=== PATIENT | female | born 1935 | race Caucasian/White ===

== ENCOUNTER 2018-02-21 23:10 | Inpatient (IN) | payer MEDICARE, MEDICAID ==
[~2018-02-21] VITALS: Ht 167.6 cm; Wt 81.8 kg
[~2018-02-21 23:10] MED LIST: ATEN50TA PO; DOCU-28 PO; GABA-530 PO; GABA-532 PO; LIDO700A5 TOP; LISI10TA4 PO; VALA10002 PO
[2018-02-22] LABS: BASOPHILS % (AUTO) 0.3 % (0-1); EOSINOPHILS # (AUTO) 0.1 X10'3 (0-0.9); HEMATOCRIT 39.4 % (35.0-45.0); HEMOGLOBIN 12.9 g/dl (12.0-16.0); LYMPHOCYTES # (AUTO) 0.9 X10'3 (1.1-4.8); LYMPHOCYTES % (AUTO) 7.1 % (21-51); MEAN CORPUSCULAR HEMOGLOBIN 30.1 PG (27.0-31.0); MEAN CORPUSCULAR HGB CONC 32.8 % (33.0-36.5); MEAN PLATELET VOLUME 9.8 FL (7.4-10.4); MONOCYTES # (AUTO) 0.6 X10'3 (0-0.9); MONOCYTES % (AUTO) 4.3 % (2-12); NEUTROPHILS # (AUTO) 11.5 X10'3 (1.8-7.7); NEUTROPHILS % (AUTO) 87.3 % (42-75); PLATELET COUNT 212 X10'3 (140-440); RED BLOOD COUNT 4.29 X10'6 (4.20-5.60); WHITE BLOOD COUNT 13.2 X10'3 (4.5-11.0)
[2018-02-22 00:13] LABS: ALANINE AMINOTRANSFERASE 23 U/L (12-78); ALBUMIN 3.6 G/DL (3.4-5.0); ALBUMIN/GLOBULIN RATIO 0.9 (1.1-1.5); ALKALINE PHOSPHATASE 130 IU/L (46-116); ANION GAP 10 (8-16); ASPARTATE AMINO TRANSFERASE 21 U/L (10-37); BILIRUBIN,TOTAL 0.4 MG/DL (0.1-1.0); BLOOD UREA NITROGEN 48 MG/DL (7-18); BUN/CREATININE RATIO 20.6 (6.6-38.0); CALCIUM 8.8 MG/DL (8.5-10.1); CHLORIDE 100 MMOL/L (99-107); CREATININE 2.33 MG/DL (0.40-0.90); GLUCOSE 214 MG/DL (70-104); POTASSIUM 4.7 MMOL/L (3.5-5.1); SODIUM 133 MMOL/L (135-145); TOTAL CARBON DIOXIDE 23.1 MMOL/L (24-32); TOTAL PROTEIN 7.7 G/DL (6.4-8.2); eGFR 20 ML/MIN
[2018-02-22] MEDS ORDERED: normal saline 1000ML IV soln IVB ONE (00:30)
[2018-02-22] MEDS ORDERED: HYDROcodone/acetaminophen 10/325mg tab PO ONE (00:35)
[2018-02-22] MEDS ORDERED: MELO-100 PO (01:26)
[2018-02-22] MEDS ORDERED: TRAM50TA2 PO (01:27)
[2018-02-22] MEDS ORDERED: HYDR12.5 PO (01:28)
[2018-02-22] MEDS ORDERED: PREG300C PO (01:29)
[2018-02-22] MEDS ORDERED: AMIT-189 PO (01:30)
[2018-02-22] MEDS ORDERED: ASPI-1265 PO (01:30)
[2018-02-22] MEDS ORDERED: acetaminophen 325mg tablet PO PRN (02:15)
[2018-02-22] MEDS ORDERED: ondansetron/PF 4mg/2ml inj IV PRN (02:15)
[2018-02-22] MEDS ORDERED: hydrALAZINE 20mg/ml inj. IV PRN (02:20)
[2018-02-22] MEDS: normal saline 1000ml 1,000 ML IV SCH ×3 (02:27→22:11)
[2018-02-22 03:05] LABS: TOTAL CELLS COUNTED 100
[2018-02-22 03:06] LABS: PLATELET ESTIMATE NORMAL
[2018-02-22 03:39] LABS: HEMOGLOBIN A1C 6.5 % (4.5-6.2)
[2018-02-22] MEDS: HYDROcodone/acetaminophen 10/325mg tab PO PRN ×2 (07:10→10:42)
[2018-02-22] MEDS: LIDOcaine 5% patch TP SCH (08:00)
[2018-02-22 09:19] LABS: CLARITY,URINE CLOUDY (Clear); COLOR,URINE YELLOW (Yellow); GLUCOSE, URINE NEGATIVE (Neg); KETONES,URINE NEGATIVE (Neg); LEUKOCYTE ESTERASE ,URINE MODERATE (Neg); NITRITES, URINE POSITIVE (Neg); OCCULT BLOOD,URINE LARGE (Neg); PROTEIN,URINE NEGATIVE (Neg); UROBILINOGEN,URINE 0.2 E.U/dL (0.2-1.0)
[2018-02-22 09:26] LABS: UA COLLECTION TYPE CLN CATCH MIDSTREAM
[2018-02-22 09:35] LABS: MUCUS STRANDS NONE SEEN /LPF (Neg); SQUAMOUS EPITHELIAL CELL,UR FEW /LPF (FEW); TRANSITIONAL EPI CELLS,URINE MODERATE /HPF
[2018-02-22 09:36] LABS: BACTERIA,URINE 4+ /HPF (Neg); HYALINE CASTS 0-3 /LPF (NEGATIVE)
[2018-02-22 09:37] LABS: RENAL CELLS, URINE FEW /HPF
[2018-02-22] MEDS ORDERED: potassium Cl 20 mEq SR tablet PO PRN ×2 (09:40)
[2018-02-22] MEDS ORDERED: magnesium 4gm in 100ml NS 100 ML IV PRN (09:40)
[2018-02-22] MEDS ORDERED: potassium Cl 40MEQ/NS 500ml 500 ML IV PRN ×2 (09:40)
[2018-02-22] MEDS ORDERED: magnesium Cl slow-release 64mg tablet PO PRN (09:40)
[2018-02-22 10:00] VITALS: BP 134/65
[2018-02-22] MEDS: pregabalin 75mg capsule PO SCH ×2 (10:07→19:25)
[2018-02-22] MEDS: docusate sod 100mg capsule PO SCH ×2 (10:07→19:24)
[2018-02-22] MEDS: heparin, porcine 5000 units/ml vial SQ SCH ×2 (10:07→19:25)
[2018-02-22] MEDS: atenolol 50mg tablet PO SCH (10:12)
[2018-02-22] MEDS: CefTRIAXone/D5W-Rocephin 1gm 50 ML IV SCH (10:24)
[2018-02-22] MEDS: HYDROcodone/acetaminophen 5mg/325mg tablet PO PRN ×2 (15:33→21:04)
[2018-02-22 18:00] VITALS: BP 157/64
[2018-02-22] MEDS: lactobacillus rhamnosus 10,000 MMU CELLS/CAPSULE PO SCH (19:24)
[2018-02-22] MEDS: amitriptyline 25mg tablet PO SCH (21:03)
[2018-02-22 22:00] VITALS: BP 164/65
[2018-02-23] VITALS (16 sets, daily range): BP systolic 96–159; BP diastolic 55–85
[2018-02-23] MEDS: HYDROcodone/acetaminophen 10/325mg tab PO PRN ×4 (00:54→22:07)
[2018-02-23 07:17] LABS: BASOPHILS % (AUTO) 0.5 % (0-1); EOSINOPHILS # (AUTO) 0.4 X10'3 (0-0.9); HEMATOCRIT 33.1 % (35.0-45.0); HEMOGLOBIN 10.9 g/dl (12.0-16.0); LYMPHOCYTES # (AUTO) 1.7 X10'3 (1.1-4.8); LYMPHOCYTES % (AUTO) 27.7 % (21-51); MEAN CORPUSCULAR HEMOGLOBIN 30.3 PG (27.0-31.0); MEAN CORPUSCULAR HGB CONC 32.8 % (33.0-36.5); MEAN CORPUSCULAR VOLUME 92.3 FL (78-98); MONOCYTES # (AUTO) 0.6 X10'3 (0-0.9); MONOCYTES % (AUTO) 9.8 % (2-12); NEUTROPHILS # (AUTO) 3.5 X10'3 (1.8-7.7); PLATELET COUNT 163 X10'3 (140-440); RED BLOOD COUNT 3.58 X10'6 (4.20-5.60); RED CELL DISTRIBUTION WIDTH 12.8 % (11.5-14.5); WHITE BLOOD COUNT 6.3 X10'3 (4.5-11.0)
[2018-02-23 07:29] LABS: INR 1.1 INR; PROTHROMBIN TIME 10.7 SECONDS (9.0-12.0)
[2018-02-23 07:30] LABS: ALBUMIN 2.9 G/DL (3.4-5.0); ANION GAP 6 (8-16); BLOOD UREA NITROGEN 29 MG/DL (7-18); BUN/CREATININE RATIO 18.6 (6.6-38.0); CALCIUM 8.7 MG/DL (8.5-10.1); CHLORIDE 107 MMOL/L (99-107); CREATININE 1.56 MG/DL (0.40-0.90); GLUCOSE 99 MG/DL (70-104); PHOSPHORUS 3.2 MG/DL (2.3-4.5); SODIUM 141 MMOL/L (135-145); TOTAL CARBON DIOXIDE 27.7 MMOL/L (24-32); eGFR 32 ML/MIN
[2018-02-23] MEDS: heparin, porcine 5000 units/ml vial SQ SCH ×2 (07:47→20:00)
[2018-02-23] MEDS: lactobacillus rhamnosus 10,000 MMU CELLS/CAPSULE PO SCH ×2 (07:57→20:21)
[2018-02-23] MEDS: pregabalin 75mg capsule PO SCH ×2 (07:58→20:22)
[2018-02-23] MEDS: docusate sod 100mg capsule PO SCH ×2 (07:58→20:21)
[2018-02-23] MEDS: atenolol 50mg tablet PO SCH (07:59)
[2018-02-23] MEDS: CefTRIAXone/D5W-Rocephin 1gm 50 ML IV SCH (08:00)
[2018-02-23] MEDS: LIDOcaine 5% patch TP SCH (08:03)
[2018-02-23] MEDS: normal saline 1000ml 1,000 ML IV SCH ×2 (08:11→21:15)
[2018-02-23] MEDS ORDERED: ceFAZolin 1GM/D5W- ADD-VANTAGE 50 ML IV ONE (15:00)
[2018-02-23] MEDS ORDERED: fentaNYL/PF 50MCG/1 ML 2ML syringe ONE (17:10)
[2018-02-23] MEDS ORDERED: midazolam 2 mg/2 ml injection ONE (17:33)
[2018-02-23] MEDS ORDERED: ePHEDrine 50MG/ML INJ. ONE (17:35)
[2018-02-23] MEDS ORDERED: phenylephrine 10mg/ml inj. ONE (17:39)
[2018-02-23] MEDS ORDERED: ROPIVAcaine 0.5% (5mg/ml) 30ml vial ONE (17:48)
[2018-02-23] MEDS ORDERED: dextrose 50%-water 50ml dispensing syringe IV PRN ×2 (19:15)
[2018-02-23] MEDS ORDERED: dextrose ORAL solution 15 GM/59 ML bottle PO PRN ×2 (19:15)
[2018-02-23] MEDS ORDERED: insulin Lispro (HumaLOG) vial - multi-dose SQ SCH (19:15)
[2018-02-23] MEDS ORDERED: glucagon, human recombinant 1mg kit SUBCUT PRN (19:15)
[2018-02-23] MEDS ORDERED: MESSAGE TO PHARMACY PO ONE (19:15)
[2018-02-23] MEDS: amitriptyline 25mg tablet PO SCH (20:22)
[2018-02-23] MEDS: insulin glargine (Lantus) pen - multi-dose SQ SCH (21:00)
[2018-02-24 03:05] VITALS: BP 149/56
[2018-02-24 05:58] LABS: BASOPHILS % (AUTO) 0.4 % (0-1); EOSINOPHILS # (AUTO) 0.2 X10'3 (0-0.9); EOSINOPHILS % (AUTO) 2.8 % (0-6); HEMATOCRIT 32.7 % (35.0-45.0); HEMOGLOBIN 10.8 g/dl (12.0-16.0); LYMPHOCYTES # (AUTO) 1.1 X10'3 (1.1-4.8); LYMPHOCYTES % (AUTO) 13.7 % (21-51); MEAN CORPUSCULAR HEMOGLOBIN 30.4 PG (27.0-31.0); MEAN CORPUSCULAR VOLUME 91.9 FL (78-98); MEAN PLATELET VOLUME 9.8 FL (7.4-10.4); MONOCYTES # (AUTO) 0.7 X10'3 (0-0.9); MONOCYTES % (AUTO) 8.3 % (2-12); NEUTROPHILS # (AUTO) 5.9 X10'3 (1.8-7.7); NEUTROPHILS % (AUTO) 74.8 % (42-75); PLATELET COUNT 160 X10'3 (140-440); RED BLOOD COUNT 3.56 X10'6 (4.20-5.60); RED CELL DISTRIBUTION WIDTH 12.9 % (11.5-14.5); WHITE BLOOD COUNT 7.9 X10'3 (4.5-11.0)
[2018-02-24 06:00] VITALS: BP 167/77
[2018-02-24 06:06] LABS: ALBUMIN 3.1 G/DL (3.4-5.0); ANION GAP 11 (8-16); BLOOD UREA NITROGEN 16 MG/DL (7-18); BUN/CREATININE RATIO 14.8 (6.6-38.0); CALCIUM 8.6 MG/DL (8.5-10.1); CHLORIDE 106 MMOL/L (99-107); CREATININE 1.08 MG/DL (0.40-0.90); GLUCOSE 84 MG/DL (70-104); MAGNESIUM 1.7 MG/DL (1.5-2.4); PHOSPHORUS 2.5 MG/DL (2.3-4.5); POTASSIUM 4.7 MMOL/L (3.5-5.1); SODIUM 139 MMOL/L (135-145); TOTAL CARBON DIOXIDE 22.3 MMOL/L (24-32); eGFR 49 ML/MIN
[2018-02-24] MEDS: lactobacillus rhamnosus 10,000 MMU CELLS/CAPSULE PO SCH ×2 (07:54→19:15)
[2018-02-24] MEDS: pregabalin 75mg capsule PO SCH ×2 (07:55→19:16)
[2018-02-24] MEDS: atenolol 50mg tablet PO SCH (07:56)
[2018-02-24] MEDS: normal saline 1000ml 1,000 ML IV SCH ×2 (07:58→14:11)
[2018-02-24] MEDS: CefTRIAXone/D5W-Rocephin 1gm 50 ML IV SCH (07:58)
[2018-02-24] MEDS: docusate sod 100mg capsule PO SCH ×2 (07:58→19:23)
[2018-02-24] MEDS: heparin, porcine 5000 units/ml vial SQ SCH ×2 (07:58→19:17)
[2018-02-24] MEDS: LIDOcaine 5% patch TP SCH (08:00)
[2018-02-24] MEDS: HYDROcodone/acetaminophen 5mg/325mg tablet PO PRN (08:18)
[2018-02-24] MEDS ORDERED: ALPRAZolam 0.25mg tablet PO ONE (10:45)
[2018-02-24] MEDS ORDERED: traMADol 50MG tablet PO PRN (12:50)
[2018-02-24] MEDS ORDERED: ALPRAZolam 0.25mg tablet PO PRN (13:35)
[2018-02-24 18:30] VITALS: BP 153/62
[2018-02-24] MEDS ORDERED: lisinopril 10 MG tablet PO ONE (18:40)
[2018-02-24 19:40] VITALS: BP 148/65
[2018-02-24] MEDS: insulin glargine (Lantus) pen - multi-dose SQ SCH (21:00)
[2018-02-24] MEDS: amitriptyline 25mg tablet PO SCH (21:05)
[2018-02-24 22:00] VITALS: BP 130/56
[2018-02-25] MEDS: normal saline 1000ml 1,000 ML IV SCH ×2 (00:11→10:11)
[2018-02-25 06:00] VITALS: BP 124/59
[2018-02-25 06:01] LABS: BASOPHILS % (AUTO) 0.3 % (0-1); EOSINOPHILS # (AUTO) 0.2 X10'3 (0-0.9); EOSINOPHILS % (AUTO) 2.9 % (0-6); HEMATOCRIT 31.4 % (35.0-45.0); HEMOGLOBIN 10.5 g/dl (12.0-16.0); LYMPHOCYTES # (AUTO) 1.8 X10'3 (1.1-4.8); LYMPHOCYTES % (AUTO) 26.6 % (21-51); MEAN CORPUSCULAR HEMOGLOBIN 30.5 PG (27.0-31.0); MEAN CORPUSCULAR HGB CONC 33.5 % (33.0-36.5); MEAN CORPUSCULAR VOLUME 90.9 FL (78-98); MEAN PLATELET VOLUME 8.9 FL (7.4-10.4); MONOCYTES # (AUTO) 0.8 X10'3 (0-0.9); MONOCYTES % (AUTO) 12.7 % (2-12); NEUTROPHILS # (AUTO) 3.8 X10'3 (1.8-7.7); NEUTROPHILS % (AUTO) 57.5 % (42-75); PLATELET COUNT 181 X10'3 (140-440); RED BLOOD COUNT 3.45 X10'6 (4.20-5.60); RED CELL DISTRIBUTION WIDTH 12.4 % (11.5-14.5); WHITE BLOOD COUNT 6.6 X10'3 (4.5-11.0)
[2018-02-25 06:19] LABS: ALBUMIN 2.9 G/DL (3.4-5.0); ANION GAP 10 (8-16); BLOOD UREA NITROGEN 14 MG/DL (7-18); BUN/CREATININE RATIO 13.1 (6.6-38.0); CALCIUM 8.9 MG/DL (8.5-10.1); CHLORIDE 103 MMOL/L (99-107); CREATININE 1.07 MG/DL (0.40-0.90); GLUCOSE 78 MG/DL (70-104); MAGNESIUM 1.7 MG/DL (1.5-2.4); PHOSPHORUS 2.7 MG/DL (2.3-4.5); POTASSIUM 3.8 MMOL/L (3.5-5.1); SODIUM 137 MMOL/L (135-145); TOTAL CARBON DIOXIDE 23.9 MMOL/L (24-32); eGFR 49 ML/MIN
[2018-02-25] MEDS ORDERED: lisinopril 10 MG tablet PO SCH (08:00)
[2018-02-25] MEDS: CefTRIAXone/D5W-Rocephin 1gm 50 ML IV SCH (08:57)
[2018-02-25] MEDS: docusate sod 100mg capsule PO SCH (09:14)
[2018-02-25] MEDS: lactobacillus rhamnosus 10,000 MMU CELLS/CAPSULE PO SCH (09:15)
[2018-02-25] MEDS: pregabalin 75mg capsule PO SCH (09:15)
[2018-02-25] MEDS: atenolol 50mg tablet PO SCH (09:15)
[2018-02-25] MEDS: heparin, porcine 5000 units/ml vial SQ SCH (09:16)
[2018-02-25] MEDS: LIDOcaine 5% patch TP SCH (09:17)
[2018-02-25 10:00] VITALS: BP 150/67
== END 2018-02-25 13:24 | DRG 492 ==
LOC: ER 23:16 → ED HOLD 02-22 02:11 → ORTHO 4S 02-22 06:48
PROVIDERS: ADMIT Internal Medicine; ATTEND Family Medicine
PROC: 2W3RX1Z Immobilization of Left Lower Leg using Splint (ICD-10-PCS; 2018-02-21)
PROC: 0MQR0ZZ Repair Left Ankle Bursa and Ligament, Open Approach (ICD-10-PCS; 2018-02-23)
PROC: 0QSK04Z Reposition Left Fibula with Internal Fixation Device, Open Approach (ICD-10-PCS; principal; 2018-02-23 17:05)
DX: S82.432A Displaced oblique fracture of shaft of left fibula, initial encounter for closed fracture (principal); N17.0 Acute kidney failure with tubular necrosis; E87.1 Hypo-osmolality and hyponatremia; N39.0 Urinary tract infection, site not specified; D62 Acute posthemorrhagic anemia; E86.0 Dehydration; Z60.2 Problems related to living alone; S93.422A Sprain of deltoid ligament of left ankle, initial encounter; B96.20 Unspecified Escherichia coli [E. coli] as the cause of diseases classified elsewhere; E11.65 Type 2 diabetes mellitus with hyperglycemia; I10 Essential (primary) hypertension; W18.39XA Other fall on same level, initial encounter; M19.90 Unspecified osteoarthritis, unspecified site; Z88.6 Allergy status to analgesic agent; Z79.82 Long term (current) use of aspirin; Z83.3 Family history of diabetes mellitus; Y93.89 Activity, other specified; Y99.8 Other external cause status; Y92.098 Other place in other non-institutional residence as the place of occurrence of the external cause
CPT/HCPCS: 29515; 36415; 71045; 73610; 80048; 80053; 81001; 82948; 83036; 83735; 84100; 85025; 85610; 87070; 87077; 87088; 87186; 93005; 96360; 97116; 97161; 97530; 99285; A6449; A7000; C1713; G0378; J0690; J0696; J1644; J1815; J2250; J2370; J2795; J3010; J3370; J7030

== ENCOUNTER 2018-03-12 07:04 | Day surgery (SDC) | payer MEDICARE, MEDICAID ==
[~2018-03-12] VITALS: Ht 162.6 cm; Wt 81.6 kg
[~2018-03-12 07:04] MED LIST changes: +AMIT-189 PO; +ASPI-1265 PO; -DOCU-28 PO; -GABA-530 PO; -GABA-532 PO; +HYDR12.5 PO; +MELO-100 PO; +PREG300C PO; +TRAM50TA2 PO; -VALA10002 PO
[2018-03-12 08:00] VITALS: BP 109/62
[2018-03-12] MEDS ORDERED: LIDO700A32 TP (08:44)
[2018-03-12 09:00] VITALS: BP 101/41
[2018-03-12 09:10] VITALS: BP 112/49
[2018-03-12 10:05] VITALS: BP 113/50
[2018-03-12 11:05] VITALS: BP 130/51
[2018-03-12 11:58] VITALS: BP 120/62
== END 2018-03-12 12:20 ==
LOC: SSTAY O 07:04
PROVIDERS: ATTEND Orthopaedic Surgery Hand Surgery
DX: D64.9 Anemia, unspecified (principal); I10 Essential (primary) hypertension; M19.90 Unspecified osteoarthritis, unspecified site; Z88.6 Allergy status to analgesic agent; Z79.899 Other long term (current) drug therapy; Z90.710 Acquired absence of both cervix and uterus; Z98.890 Other specified postprocedural states
CPT/HCPCS: 36415; 36430; 86870; 86885; 86900; 86901; 86922; P9016

== ENCOUNTER 2019-04-17 20:10 | Emergency (ER) | payer OTHER, MEDICARE, MEDICAID ==
[~2019-04-17] VITALS: Ht 162.6 cm; Wt 85.0 kg
[~2019-04-17 20:10] MED LIST changes: +LIDO700A32 TP; -LIDO700A5 TOP
[2019-04-17 22:09] VITALS: BP 142/114
== END 2019-04-17 22:13 | disposition home or self-care (01) ==
LOC: ER 20:13
DX: S01.511A Laceration without foreign body of lip, initial encounter (principal); S00.83XA Contusion of other part of head, initial encounter; I10 Essential (primary) hypertension; F10.99 Alcohol use, unspecified with unspecified alcohol-induced disorder; Z88.5 Allergy status to narcotic agent; Z88.6 Allergy status to analgesic agent; Z79.82 Long term (current) use of aspirin; Z79.899 Other long term (current) drug therapy; V87.7XXA Person injured in collision between other specified motor vehicles (traffic), initial encounter; Y93.89 Activity, other specified; Y92.488 Other paved roadways as the place of occurrence of the external cause; Y99.8 Other external cause status; Y90.9 Presence of alcohol in blood, level not specified
CPT/HCPCS: 70450; 70486; 72125; 99284

== ENCOUNTER 2021-01-16 09:42 | Inpatient (IN) | payer BC, MEDICAID ==
[~2021-01-16] VITALS: Ht 162.6 cm; Wt 81.8 kg
[~2021-01-16 09:42] MED LIST changes: +LISI10TA27 PO; -LISI10TA4 PO
[2021-01-16 10:24] LABS: BASOPHILS % (AUTO) 0.3 % (0-1); EOSINOPHILS % (AUTO) 0.2 % (0-6); HEMATOCRIT 40.3 % (35.0-45.0); HEMOGLOBIN 13.1 g/dl (12.0-16.0); LYMPHOCYTES # (AUTO) 1.8 X10'3 (1.1-4.8); LYMPHOCYTES % (AUTO) 13.1 % (21-51); MEAN CORPUSCULAR HEMOGLOBIN 30.6 PG (27.0-31.0); MEAN CORPUSCULAR HGB CONC 32.5 g/dL (33.0-36.5); MEAN CORPUSCULAR VOLUME 94.3 FL (78-98); MEAN PLATELET VOLUME 10.8 FL (7.4-10.4); MONOCYTES # (AUTO) 1.3 X10'3 (0-0.9); NEUTROPHILS # (AUTO) 10.9 X10'3 (1.8-7.7); NEUTROPHILS % (AUTO) 77.4 % (42-75); PLATELET COUNT 183 X10'3 (140-440); RED BLOOD COUNT 4.27 X10'6 (4.20-5.60); RED CELL DISTRIBUTION WIDTH 13.6 % (11.5-14.5); WHITE BLOOD COUNT 14.1 X10'3 (4.5-11.0)
[2021-01-16 10:37] LABS: ALBUMIN 3.7 G/DL (3.4-5.0); ANION GAP 18 (8-16); BLOOD UREA NITROGEN 56 MG/DL (7-18); BUN/CREATININE RATIO 27.2 (6.6-38.0); CALCIUM 9.4 MG/DL (8.5-10.1); CHLORIDE 102 MMOL/L (99-107); CREATININE 2.06 MG/DL (0.40-0.90); GLUCOSE 248 MG/DL (70-104); SODIUM 141 MMOL/L (135-145); TROPONIN I 0.11 NG/ML (0.0-0.05); eGFR 23 ML/MIN
[2021-01-16] MEDS ORDERED: aspirin 325mg tablet PO ONE (10:55)
[2021-01-16] MEDS ORDERED: potassium Cl 20 mEq SR tablet PO STA (11:08)
--- NOTE | 2021-01-16 12:09 | NUR ---
02 REMOVED PT 02 SATS 96% RA
--- NOTE | 2021-01-16 13:15 | NUR ---
ATTEMP AT STRAIGHT CATH, UNSUCCESSFUL, WILL NOTIFY
[2021-01-16] MEDS ORDERED: normal saline 1000ml 1,000 ML IV ONE (14:05)
--- NOTE | 2021-01-16 14:18 | NUR ---
[facility] [phone]
[2021-01-16] MEDS ORDERED: ondansetron/PF 4mg/2ml inj IV PRN (14:20)
[2021-01-16] MEDS ORDERED: acetaminophen 325mg tablet PO PRN (14:20)
[2021-01-16] MEDS ORDERED: magnesium hydroxide 30ml (MOM) UD suspension PO PRN (14:20)
[2021-01-16] MEDS ORDERED: mag hydrox/Alum hydrox/simeth 30ml oral suspension PO PRN (14:20)
[2021-01-16] MEDS ORDERED: CefTRIAXone/D5W-Rocephin 1gm 50 ML IV ONE (14:20)
--- NOTE | 2021-01-16 14:55 | NUR ---
PAGER ID: [phone] MESSAGE: PAT [phone] RE: BED 11 [facility] 1.39
[2021-01-16] MEDS ORDERED: MELO7.5T12 PO (15:00)
[2021-01-16] MEDS: normal saline 1000ml 1,000 ML IV SCH (15:18)
[2021-01-16] MEDS ORDERED: magnesium 4gm in 100ml NS 100 ML IV PRN (15:30)
[2021-01-16] MEDS ORDERED: magnesium Cl slow-release 64mg tablet PO PRN (15:30)
[2021-01-16] MEDS ORDERED: potassium Cl 40MEQ/1/2NS 520ml 520 ML IV PRN (15:30)
[2021-01-16] MEDS ORDERED: potassium Cl 20 mEq SR tablet PO PRN ×2 (15:30)
[2021-01-16] MEDS ORDERED: heparin 10,000 units/1 ML INJ IV ONE (15:35)
[2021-01-16 15:51] LABS: MAGNESIUM 2.3 MG/DL (1.5-2.4)
[2021-01-16 16:24] LABS: PARTIAL THROMBOPLASTIN TIME 27 SECONDS (22-32)
[2021-01-16 16:25] LABS: BASOPHILS % (AUTO) 0.3 % (0-1); EOSINOPHILS % (AUTO) 0 % (0-6); HEMATOCRIT 36.4 % (35.0-45.0); HEMOGLOBIN 12.2 g/dl (12.0-16.0); LYMPHOCYTES # (AUTO) 1.3 X10'3 (1.1-4.8); LYMPHOCYTES % (AUTO) 11.6 % (21-51); MEAN CORPUSCULAR HEMOGLOBIN 31.1 PG (27.0-31.0); MEAN CORPUSCULAR HGB CONC 33.6 g/dL (33.0-36.5); MEAN CORPUSCULAR VOLUME 92.5 FL (78-98); MEAN PLATELET VOLUME 10.7 FL (7.4-10.4); MONOCYTES # (AUTO) 0.8 X10'3 (0-0.9); MONOCYTES % (AUTO) 7.3 % (2-12); NEUTROPHILS # (AUTO) 8.8 X10'3 (1.8-7.7); NEUTROPHILS % (AUTO) 80.8 % (42-75); PLATELET COUNT 154 X10'3 (140-440); RED BLOOD COUNT 3.93 X10'6 (4.20-5.60); RED CELL DISTRIBUTION WIDTH 13.1 % (11.5-14.5); WHITE BLOOD COUNT 10.9 X10'3 (4.5-11.0)
[2021-01-16] MEDS: heparin 25,000 UNIT/250ml bag 250 ML IV SCH (17:49)
[2021-01-16] MEDS: pregabalin 75mg capsule PO SCH (20:00)
[2021-01-16] MEDS: docusate sod 100mg capsule PO SCH (20:00)
[2021-01-16] MEDS: K and/or MAG REPLACEMENT MC SCH (20:00)
[2021-01-16] MEDS ORDERED: heparin, porcine 5000 units/ml vial SQ SCH (20:00)
[2021-01-16] MEDS ORDERED: amitriptyline 50mg tablet PO SCH (21:00)
[2021-01-17] VITALS (8 sets, daily range): BP systolic 119–148; BP diastolic 52–82
[2021-01-17 00:11] LABS: PLATELET ESTIMATE NORMAL
[2021-01-17 00:20] LABS: LARGE PLATELETS FEW
[2021-01-17 00:22] LABS: BURR CELLS FEW
[2021-01-17] MEDS: normal saline 1000ml 1,000 ML IV SCH ×3 (00:55→20:56)
[2021-01-17] MEDS: heparin 25,000 UNIT/250ml bag 250 ML IV SCH (01:08)
[2021-01-17 02:52] LABS: BASOPHILS # (AUTO) 0.1 X10'3 (0-0.2); BASOPHILS % (AUTO) 0.7 % (0-1); EOSINOPHILS # (AUTO) 0.1 X10'3 (0-0.9); EOSINOPHILS % (AUTO) 1.7 % (0-6); HEMATOCRIT 37.1 % (35.0-45.0); HEMOGLOBIN 12.5 g/dl (12.0-16.0); LYMPHOCYTES % (AUTO) 24.5 % (21-51); MEAN CORPUSCULAR HEMOGLOBIN 31.2 PG (27.0-31.0); MEAN CORPUSCULAR HGB CONC 33.7 g/dL (33.0-36.5); MEAN CORPUSCULAR VOLUME 92.6 FL (78-98); MEAN PLATELET VOLUME 11.1 FL (7.4-10.4); MONOCYTES # (AUTO) 0.9 X10'3 (0-0.9); MONOCYTES % (AUTO) 11.1 % (2-12); PLATELET COUNT 159 X10'3 (140-440); RED BLOOD COUNT 4.01 X10'6 (4.20-5.60); RED CELL DISTRIBUTION WIDTH 13.6 % (11.5-14.5)
[2021-01-17 03:04] LABS: ALBUMIN 3.2 G/DL (3.4-5.0); ANION GAP 15 (8-16); BLOOD UREA NITROGEN 46 MG/DL (7-18); BUN/CREATININE RATIO 32.6 (6.6-38.0); CALCIUM 8.4 MG/DL (8.5-10.1); CHLORIDE 110 MMOL/L (99-107); CREATININE 1.41 MG/DL (0.40-0.90); GLUCOSE 132 MG/DL (70-104); MAGNESIUM 2.2 MG/DL (1.5-2.4); SODIUM 144 MMOL/L (135-145); TOTAL CARBON DIOXIDE 19.5 MMOL/L (24-32); eGFR 36 ML/MIN
--- NOTE | 2021-01-17 03:39 | NUR ---
CRITICAL LAB VALUE TAKEN FROM LAB, REPORTED TO PRIMARY RN.
[2021-01-17 04:33] LABS: LARGE PLATELETS FEW; PLATELET ESTIMATE NORMAL
--- NOTE | 2021-01-17 06:26 | NUR ---
Patient in room PCU 3026. I have received report from SHLOMO DOWELL, and had the opportunity to ask questions and assume patient care.
[2021-01-17] MEDS: CefTRIAXone/D5W-Rocephin 1gm 50 ML IV SCH (07:19)
[2021-01-17] MEDS: pregabalin 75mg capsule PO SCH ×2 (07:21→20:54)
[2021-01-17] MEDS: atenolol 50mg tablet PO SCH (07:21)
[2021-01-17] MEDS: docusate sod 100mg capsule PO SCH ×2 (07:21→20:53)
[2021-01-17] MEDS: lisinopril 10 MG tablet PO SCH (07:21)
[2021-01-17] MEDS: K and/or MAG REPLACEMENT MC SCH ×2 (07:22→20:00)
--- NOTE | 2021-01-17 08:35 | NUR ---
PAGE SENT PAGER ID: [phone] MESSAGE: [id number], MELANY DIA, CRITICAL CARDIAC PTT - 97. HEPARIN DRIP STOPPED. THANK YOU, LEWIS Antunez [phone]
[2021-01-17 09:41] LABS: CHOL/HDL RATIO 3.6 (0.00-4.99); CHOLESTEROL 134 MG/DL (0-200); HDL CHOLESTEROL 37 MG/DL (35-60); LDL CHOLESTEROL 72 MG/DL (50-100); TRIGLYCERIDES 136 MG/DL (20-135)
--- NOTE | 2021-01-17 10:03 | NUR ---
PAGE SENT PAGER ID: [phone] MESSAGE: [id number], MELANY DIA, PT HAD A 7 BEAT RUN OF VTACH. BP 104/44, HR 79. PT REPORTS FEELING A LITTLE DIZZY RESTING IN BED, NO OTHER COMPLAINTS. THANK YOU, LEWIS [phone]
[2021-01-17] MEDS: nystatin 15 GM powder TP SCH ×2 (14:01→20:55)
[2021-01-17] MEDS: heparin 10,000 units/1 ML INJ IV PRN (14:05)
[2021-01-17] MEDS ORDERED: acetylcysteine 200 MG/ml 4ml vial PO ONE (17:55)
--- NOTE | 2021-01-17 18:12 | NUR ---
Problems reprioritized. Patient report given, questions answered & plan of care reviewed with SHLOMO DOWELL.
[2021-01-17] MEDS ORDERED: LORazepam 1 MG tablet PO ONE (20:50)
[2021-01-17] MEDS: amitriptyline 25mg tablet PO SCH (20:53)
[2021-01-17] MEDS: acetylcysteine 200 MG/ml 4ml vial PO SCH (20:55)
[2021-01-18] VITALS (12 sets, daily range): BP systolic 116–265; BP diastolic 63–206
[2021-01-18] MEDS: heparin 25,000 UNIT/250ml bag 250 ML IV SCH (03:33)
[2021-01-18 04:33] LABS: BASOPHILS # (AUTO) 0.1 X10'3 (0-0.2); HEMATOCRIT 36.7 % (35.0-45.0); HEMOGLOBIN 12.1 g/dl (12.0-16.0); LYMPHOCYTES # (AUTO) 1.4 X10'3 (1.1-4.8); NEUTROPHILS # (AUTO) 5.1 X10'3 (1.8-7.7); WHITE BLOOD COUNT 7.7 X10'3 (4.5-11.0)
[2021-01-18 04:35] LABS: ALBUMIN 3.1 G/DL (3.4-5.0); ANION GAP 12 (8-16); BASOPHILS % (AUTO) 0.7 % (0-1); BLOOD UREA NITROGEN 35 MG/DL (7-18); BUN/CREATININE RATIO 29.9 (6.6-38.0); CALCIUM 8.8 MG/DL (8.5-10.1); CHLORIDE 110 MMOL/L (99-107); CREATININE 1.17 MG/DL (0.40-0.90); EOSINOPHILS # (AUTO) 0.2 X10'3 (0-0.9); GLUCOSE 190 MG/DL (70-104); LYMPHOCYTES % (AUTO) 18.4 % (21-51); MEAN CORPUSCULAR VOLUME 93.9 FL (78-98); MONOCYTES # (AUTO) 0.9 X10'3 (0-0.9); MONOCYTES % (AUTO) 12.3 % (2-12); NEUTROPHILS % (AUTO) 66.6 % (42-75); PLATELET COUNT 125 X10'3 (140-440); POTASSIUM 3.9 MMOL/L (3.5-5.1); RED BLOOD COUNT 3.91 X10'6 (4.20-5.60); RED CELL DISTRIBUTION WIDTH 13.6 % (11.5-14.5); SODIUM 145 MMOL/L (135-145); TOTAL CARBON DIOXIDE 23.5 MMOL/L (24-32); eGFR 44 ML/MIN
[2021-01-18 04:38] LABS: TROPONIN I 1.15 NG/ML (0.0-0.05)
[2021-01-18] MEDS: heparin 10,000 units/1 ML INJ IV PRN ×3 (05:15→13:21)
--- NOTE | 2021-01-18 06:34 | NUR ---
Patient in room PCU 3026. I have received report from SHLOMO DOWELL, and had the opportunity to ask questions and assume patient care.
[2021-01-18] MEDS ORDERED: metoprolol tartrate 1mg/ml inj IV PRN (06:40)
[2021-01-18] MEDS ORDERED: regadenoson 0.4mg/5ml syringe IV PRN (06:40)
[2021-01-18] MEDS ORDERED: nitroGLYCERIN 0.4mg SUBLingual tab SL PRN (06:40)
[2021-01-18] MEDS ORDERED: aminophylline 250mg/10ml inj. IV PRN (06:40)
--- NOTE | 2021-01-18 07:00 | NUR ---
PT'S AM TROPONIN 1.15, <2.2. LEXISCAN ORDERED PER MD ORDER.
[2021-01-18] MEDS: CefTRIAXone/D5W-Rocephin 1gm 50 ML IV SCH (07:38)
[2021-01-18] MEDS: pregabalin 75mg capsule PO SCH ×2 (07:57→20:42)
[2021-01-18] MEDS: lisinopril 10 MG tablet PO SCH (07:58)
[2021-01-18] MEDS: atenolol 50mg tablet PO SCH (07:59)
[2021-01-18] MEDS: K and/or MAG REPLACEMENT MC SCH ×2 (08:00→20:00)
[2021-01-18] MEDS: docusate sod 100mg capsule PO SCH ×2 (08:00→20:42)
[2021-01-18] MEDS: acetylcysteine 200 MG/ml 4ml vial PO SCH ×2 (08:03→20:43)
[2021-01-18] MEDS: nystatin 15 GM powder TP SCH ×3 (08:09→20:43)
[2021-01-18 12:44] LABS: PARTIAL THROMBOPLASTIN TIME 36 SECONDS (22-32)
--- NOTE | 2021-01-18 15:56 | NUR ---
PAGE SENT PAGER ID: [phone] MESSAGE: [id number], MELANY DIA, ORTHOSTATIC VITAL SIGN DIFFERENCE >20, LAYING-172/95, HR-70, SITTING-171/85, HR-73, EYXWUXAQ=198/74, HR-74. THANK YOU, LEWIS [phone]
--- NOTE | 2021-01-18 18:06 | NUR ---
PAGE SENT PAGER ID: [phone] MESSAGE: [id number], MELANY DIA, PTT 139. HEPARIN STOPPED. THANK YOU, LEWIS
--- NOTE | 2021-01-18 18:24 | NUR ---
Problems reprioritized. Patient report given, questions answered & plan of care reviewed with SHLOMO DOWELL.
[2021-01-18] MEDS: amitriptyline 25mg tablet PO SCH (20:43)
[2021-01-18] MEDS: lactobacillus rhamnosus 10,000 MMU CELLS/CAPSULE PO SCH (20:43)
[2021-01-18 23:22] LABS: PARTIAL THROMBOPLASTIN TIME 60 SECONDS (22-32)
[2021-01-19 02:00] VITALS: BP 138/82
[2021-01-19 05:46] LABS: PARTIAL THROMBOPLASTIN TIME 48 SECONDS (22-32)
[2021-01-19 06:00] VITALS: BP 112/61
--- NOTE | 2021-01-19 06:24 | NUR ---
Patient in room PCU 3026. I have received report from SHLOMO DOWELL, and had the opportunity to ask questions and assume patient care.
[2021-01-19 08:00] VITALS: BP_SYST 139; BP_SYST 152; BP_SYST 168; BP_DIAS 64; BP_DIAS 67; BP_DIAS 69
[2021-01-19] MEDS ORDERED: atorvastatin 20mg tablet PO SCH (08:00)
[2021-01-19] MEDS: docusate sod 100mg capsule PO SCH (08:00)
[2021-01-19] MEDS: CefTRIAXone/D5W-Rocephin 1gm 50 ML IV SCH (08:11)
[2021-01-19] MEDS: acetylcysteine 200 MG/ml 4ml vial PO SCH (08:21)
[2021-01-19] MEDS: pregabalin 75mg capsule PO SCH (08:22)
[2021-01-19] MEDS: lisinopril 10 MG tablet PO SCH (08:22)
[2021-01-19] MEDS: lactobacillus rhamnosus 10,000 MMU CELLS/CAPSULE PO SCH (08:23)
[2021-01-19] MEDS: atenolol 50mg tablet PO SCH (08:23)
[2021-01-19] MEDS: nystatin 15 GM powder TP SCH (08:24)
[2021-01-19 11:00] VITALS: BP 112/70
[2021-01-19 11:57] LABS: PARTIAL THROMBOPLASTIN TIME 38 SECONDS (22-32)
--- NOTE | 2021-01-19 12:57 | NUR ---
PAGE SENT PAGER ID: [phone] MESSAGE: [id number], MELANY MONTELONGO, PT'S ORTHSTATIC BP, SBP DROPS MORE THAN 20mm. SUPINE - 168/64, HR 54, SITTING - 152/67, HR 63, STANDING - 139/69, HR 67. THANK YOU, LEWIS [phone]
[2021-01-19 15:00] VITALS: BP 122/59
[2021-01-19] MEDS ORDERED: ATOR20TA66 PO (15:47)
--- NOTE | 2021-01-19 16:20 | NUR ---
O2 Sat at rest on room air:_97 __% If below 89%: Recovery O2 Sat at rest on ___LPM:___%:___% via (mask/nasal cannula, etc..) No further documentation is necessary. If O2 Sat did not drop below 89% on room air,ambulate patient on room air. O2 Sat while ambulating on room air:_88__% Recovery O2 Sat while ambulating on _1__LPM:___% No further documentation is necessary. If patient does not drop below 89% while ambulating, he/she does not qualify for home O2.
[2021-01-19] MEDS ORDERED: ASPI81TA48 PO (17:35)
--- NOTE | 2021-01-19 17:43 | NUR ---
PT STABLE FOR DISCHARGE PER MD. PIV AND EXTENDED PIV REMOVED WITH TIP INTACT. PROCEDURE TOLERATED WELL BY PT. DISCHARGE AND FOLLOW UP INSTRUCTIONS REVIEWED WITH PT AND APPROPRIATE PAPERWORK WAS SIGHED. PT EDUCATED ON BLEEDING PRECAUTIONS AND CARDIAC DISEASE. BELONGINGS RETURNED TO PT. PT DISCHARGED TO HOME. PT TRANSFERRED TO PRIVATE VEHICLE BY STAFF.
== END 2021-01-19 17:25 | disposition home health service (06) | DRG 280 ==
LOC: ER 09:42 → ED HOLD 14:21 → PCU 3S 01-17 00:05
PROVIDERS: ADMIT Family Medicine; ATTEND Family Medicine
PROC: 4A02XM4 Measurement of Cardiac Total Activity, External Approach (ICD-10-PCS; principal; 2021-01-18)
PROC: 3E073KZ Introduction of Other Diagnostic Substance into Coronary Artery, Percutaneous Approach (ICD-10-PCS; 2021-01-18)
DX: I21.4 Non-ST elevation (NSTEMI) myocardial infarction (principal); N17.0 Acute kidney failure with tubular necrosis; I47.2 Ventricular tachycardia; N39.0 Urinary tract infection, site not specified; G62.9 Polyneuropathy, unspecified; W18.39XA Other fall on same level, initial encounter; R55 Syncope and collapse; I12.9 Hypertensive chronic kidney disease with stage 1 through stage 4 chronic kidney disease, or unspecified chronic kidney disease; N18.9 Chronic kidney disease, unspecified; E78.5 Hyperlipidemia, unspecified; Z90.710 Acquired absence of both cervix and uterus; Y93.89 Activity, other specified; Y92.098 Other place in other non-institutional residence as the place of occurrence of the external cause; Y99.8 Other external cause status; Z88.5 Allergy status to narcotic agent; Z90.49 Acquired absence of other specified parts of digestive tract; Z79.899 Other long term (current) drug therapy
CPT/HCPCS: 36415; 70450; 71045; 72125; 76937; 78452; 80048; 80061; 83605; 83735; 84484; 85008; 85025; 85610; 85730; 87040; 87081; 93005; 93017; 93306; 93880; 96360; 99285; A9500; G0378; J0696; J1644; J2785; J7030

== ENCOUNTER 2021-03-06 06:02 | Day surgery (SDC) | payer BC, MEDICAID ==
[2021-03-05 11:38] LABS: BASOPHILS % (AUTO) 0.7 % (0-1); EOSINOPHILS # (AUTO) 0.1 X10'3 (0-0.9); EOSINOPHILS % (AUTO) 0.9 % (0-6); HEMATOCRIT 41.7 % (35.0-45.0); LYMPHOCYTES # (AUTO) 1.3 X10'3 (1.1-4.8); LYMPHOCYTES % (AUTO) 18.3 % (21-51); MEAN CORPUSCULAR HEMOGLOBIN 30.5 PG (27.0-31.0); MEAN CORPUSCULAR HGB CONC 33.5 g/dL (33.0-36.5); MEAN CORPUSCULAR VOLUME 91.2 FL (78-98); MEAN PLATELET VOLUME 9.9 FL (7.4-10.4); MONOCYTES # (AUTO) 0.6 X10'3 (0-0.9); MONOCYTES % (AUTO) 7.9 % (2-12); NEUTROPHILS # (AUTO) 5.2 X10'3 (1.8-7.7); NEUTROPHILS % (AUTO) 72.2 % (42-75); PLATELET COUNT 156 X10'3 (140-440); RED BLOOD COUNT 4.57 X10'6 (4.20-5.60); RED CELL DISTRIBUTION WIDTH 13.4 % (11.5-14.5); WHITE BLOOD COUNT 7.2 X10'3 (4.5-11.0)
[2021-03-05 11:46] LABS: ALBUMIN 3.5 G/DL (3.4-5.0); ANION GAP 14 (8-16); BLOOD UREA NITROGEN 31 MG/DL (7-18); CALCIUM 9.3 MG/DL (8.5-10.1); CHLORIDE 102 MMOL/L (99-107); CREATININE 1.94 MG/DL (0.40-0.90); GLUCOSE 125 MG/DL (70-104); POTASSIUM 4.2 MMOL/L (3.5-5.1); SODIUM 139 MMOL/L (135-145); TOTAL CARBON DIOXIDE 23.3 MMOL/L (24-32); eGFR 25 ML/MIN
[2021-03-05 11:51] LABS: PARTIAL THROMBOPLASTIN TIME 26 SECONDS (22-32)
[2021-03-06] VITALS (12 sets, daily range): BP systolic 90–180; BP diastolic 52–92
[~2021-03-06] VITALS: Ht 160 cm; Wt 72.8 kg
[~2021-03-06 06:02] MED LIST changes: -ASPI-1265 PO; -ATEN50TA PO; +ATOR20TA66 PO; -HYDR12.5 PO; -LIDO700A32 TP; -MELO-100 PO; +MELO7.5T12 PO; -PREG300C PO; -TRAM50TA2 PO; +[UNRECOGNIZED DRUG - CODE] PO
[2021-03-06] MEDS ORDERED: sodium bicarbonate (8.4%) inj. 150 ML in dextrose 5%-water 1,000 ML IV ONE (06:20)
[2021-03-06] MEDS ORDERED: normal saline 1,000 ML IV SCH (06:20)
[2021-03-06] MEDS ORDERED: LORazepam 0.5 MG tablet PO PRN (06:20)
[2021-03-06] MEDS ORDERED: diphenhydrAMINE 25mg capsule PO PRN (06:20)
[2021-03-06] MEDS ORDERED: LIDOcaine/PRILOcaine 5gm cream TP ONE (06:25)
[2021-03-06] MEDS ORDERED: ASPI-1265 PO (06:33)
[2021-03-06] MEDS ORDERED: TRAM50TA2 PO (06:33)
[2021-03-06] MEDS: acetylcysteine 200 MG/ml 4ml vial PO SCH ×2 (07:03→10:27)
[2021-03-06] MEDS ORDERED: nitroGLYCERIN-Tridil 50MG/D5W 250 ML IV ONE (07:29)
[2021-03-06] MEDS ORDERED: verapamil 2.5 mg/ml inj IV ONE (07:29)
[2021-03-06] MEDS ORDERED: LIDOcaine 1% (10mg/ml)w/preservative injection 20ml MDV ONE (07:30)
[2021-03-06] MEDS ORDERED: fentaNYL/PF 50MCG/1 ML 2ML syringe ONE (07:30)
[2021-03-06] MEDS ORDERED: midazolam 1 mg/ML 2ml injection ONE (07:30)
[2021-03-06] MEDS ORDERED: iohexol 350MG/ML 100ml bottle IV ONE (07:30)
[2021-03-06] MEDS ORDERED: iohexol 350 MG/ML 50ML vial IV ONE ×2 (07:30→09:01)
[2021-03-06] MEDS ORDERED: heparin 1,000unit/ml 10ml vial 10 ML ONE (08:27)
[2021-03-06 09:31] LABS: ISTAT HGB ART 10.9 g/dl (12.0-16.0); ISTAT Hct ART 32 %PCV (35-48); ISTAT O2 SATURATION ARTERIAL 99 % (95-98); ISTAT SOURCE ART
[2021-03-06] MEDS ORDERED: sodium bicarbonate (8.4%) inj. 150 MEQ in dextrose 5%-water 1,000 ML IV SCH (09:55)
[2021-03-06] MEDS ORDERED: HYDROcodone/acetaminophen 10/325mg tab PO PRN (09:55)
[2021-03-06] MEDS ORDERED: HYDROcodone/acetaminophen 5mg/325mg tablet PO PRN (09:55)
[2021-03-06] MEDS ORDERED: ACETYLCYSTEINE 200 MG/1 ML 4 ML ORAL SOLUTION PO SCH (20:00)
[2021-03-11 06:40] LABS: ISTAT Hct MIX 33 %PCV (35-48); ISTAT O2 SATURATION MIX VENOUS 66 % (60-80); ISTAT SOURCE VEN
== END 2021-03-06 15:00 | disposition home or self-care (01) ==
LOC: SSTAY O 06:02
PROVIDERS: ATTEND Internal Medicine Cardiovascular Disease
DX: R94.39 Abnormal result of other cardiovascular function study (principal); I25.10 Atherosclerotic heart disease of native coronary artery without angina pectoris; I08.1 Rheumatic disorders of both mitral and tricuspid valves; E78.5 Hyperlipidemia, unspecified; I42.2 Other hypertrophic cardiomyopathy; I25.2 Old myocardial infarction; I10 Essential (primary) hypertension; M19.90 Unspecified osteoarthritis, unspecified site; G47.00 Insomnia, unspecified; Z90.49 Acquired absence of other specified parts of digestive tract; Z79.01 Long term (current) use of anticoagulants; Z98.890 Other specified postprocedural states; Z72.89 Other problems related to lifestyle; Z88.5 Allergy status to narcotic agent; Z88.8 Allergy status to other drugs, medicaments and biological substances; Z79.82 Long term (current) use of aspirin; Z79.899 Other long term (current) drug therapy
CPT/HCPCS: 36415; 80048; 82803; 85014; 85025; 85610; 85730; 93005; 93460; 99152; 99153; C1751; C1769; C1894; J1644; J2250; J3010; J3490; J7030; J7070; Q0163; Q9967; A4620; A6258

== ENCOUNTER 2021-07-27 14:45 | Emergency (ER) | payer BC, MEDICAID ==
[~2021-07-27] VITALS: Ht 160 cm; Wt 72.7 kg
[~2021-07-27 14:45] MED LIST changes: -AMIT-189 PO; +ASPI-1265 PO; -ATOR20TA66 PO; +TRAM50TA2 PO
[2021-07-27] MEDS ORDERED: normal saline 1000ML IV soln IVB ONE (14:55)
[2021-07-27] MEDS ORDERED: ondansetron/PF 4mg/2ml inj IV ONE (14:55)
[2021-07-27 15:09] LABS: BASOPHILS # (AUTO) 0.1 X10'3 (0-0.2); BASOPHILS % (AUTO) 1.1 % (0-1); EOSINOPHILS # (AUTO) 0.2 X10'3 (0-0.9); EOSINOPHILS % (AUTO) 3.1 % (0-6); HEMATOCRIT 33.1 % (35.0-45.0); HEMOGLOBIN 11.1 g/dl (12.0-16.0); LYMPHOCYTES # (AUTO) 1.6 X10'3 (1.1-4.8); MEAN CORPUSCULAR HEMOGLOBIN 30.7 PG (27.0-31.0); MEAN CORPUSCULAR HGB CONC 33.5 g/dL (33.0-36.5); MEAN CORPUSCULAR VOLUME 91.4 FL (78-98); MEAN PLATELET VOLUME 8.7 FL (7.4-10.4); MONOCYTES # (AUTO) 0.4 X10'3 (0-0.9); NEUTROPHILS # (AUTO) 3.8 X10'3 (1.8-7.7); NEUTROPHILS % (AUTO) 62.8 % (42-75); PLATELET COUNT 222 X10'3 (140-440); RED BLOOD COUNT 3.62 X10'6 (4.20-5.60); RED CELL DISTRIBUTION WIDTH 13.2 % (11.5-14.5); WHITE BLOOD COUNT 6.1 X10'3 (4.5-11.0)
[2021-07-27 15:20] LABS: D-DIMER 2.88 MG/L FEU (0-0.50)
[2021-07-27 15:22] LABS: ALANINE AMINOTRANSFERASE 39 U/L (12-78); ALBUMIN 3.5 G/DL (3.4-5.0); ALBUMIN/GLOBULIN RATIO 0.9 (1.1-1.5); ALKALINE PHOSPHATASE 145 IU/L (46-116); ANION GAP 13 (8-16); ASPARTATE AMINO TRANSFERASE 42 U/L (10-37); BILIRUBIN,TOTAL 0.3 MG/DL (0.1-1.0); BLOOD UREA NITROGEN 27 MG/DL (7-18); BUN/CREATININE RATIO 25.5 (6.6-38.0); CALCIUM 8.2 MG/DL (8.5-10.1); CHLORIDE 104 MMOL/L (99-107); CREATININE 1.06 MG/DL (0.40-0.90); GLUCOSE 201 MG/DL (70-104); SODIUM 138 MMOL/L (135-145); TOTAL CARBON DIOXIDE 21.1 MMOL/L (24-32); TOTAL PROTEIN 7.5 G/DL (6.4-8.2); eGFR 49 ML/MIN
[2021-07-27 15:23] LABS: POTASSIUM 4.1 MMOL/L (3.5-5.1)
[2021-07-27] MEDS ORDERED: iohexol 350MG/ML 100ml bottle IV ONE (15:30)
[2021-07-27 16:10] LABS: CARBAMAZEPINE (TEGRETOL) 6.1 UG/ML (4.0-12.0)
[2021-07-27] MEDS ORDERED: furosemide 10 MG/1 ML 10ml inj IV ONE (16:20)
--- NOTE | 2021-07-27 17:00 | NUR ---
pt more alert daisy to answer questions appro.
[2021-07-27 17:46] VITALS: BP 125/51
== END 2021-07-27 17:49 | disposition home or self-care (01) ==
LOC: MERGE 14:46 → ER 14:46
DX: I50.9 Heart failure, unspecified (principal); R55 Syncope and collapse; I25.10 Atherosclerotic heart disease of native coronary artery without angina pectoris; I10 Essential (primary) hypertension; I25.2 Old myocardial infarction; Z90.710 Acquired absence of both cervix and uterus; Z98.890 Other specified postprocedural states; Z72.89 Other problems related to lifestyle; Z88.5 Allergy status to narcotic agent
CPT/HCPCS: 36415; 71045; 71275; 80053; 80156; 80320; 83880; 84484; 85025; 85379; 93005; 96374; 96375; 99285; J1940; J2405; J7030; Q9967

== ENCOUNTER 2023-01-06 16:14 | Inpatient (IN) | payer BC, MEDICAID ==
[~2023-01-06] VITALS: Ht 172.7 cm; Wt 68.7 kg
[2023-01-06 17:58] LABS: MEAN CORPUSCULAR HEMOGLOBIN 30.8 PG (27.0-31.0); RED CELL DISTRIBUTION WIDTH 12.7 % (11.5-14.5)
[2023-01-06 18:00] LABS: BASOPHILS % (AUTO) 0.2 % (0-1); EOSINOPHILS % (AUTO) 0.1 % (0-6); HEMATOCRIT 34.5 % (35.0-45.0); HEMOGLOBIN 11.6 g/dl (12.0-16.0); LYMPHOCYTES # (AUTO) 0.7 X10'3 (1.1-4.8); LYMPHOCYTES % (AUTO) 5.5 % (21-51); MEAN CORPUSCULAR HGB CONC 33.6 g/dL (33.0-36.5); MEAN CORPUSCULAR VOLUME 91.6 FL (78-98); MEAN PLATELET VOLUME 9.7 FL (7.4-10.4); MONOCYTES # (AUTO) 0.9 X10'3 (0-0.9); MONOCYTES % (AUTO) 6.7 % (2-12); NEUTROPHILS # (AUTO) 11.6 X10'3 (1.8-7.7); NEUTROPHILS % (AUTO) 87.5 % (42-75); PLATELET COUNT 199 X10'3 (140-440); RED BLOOD COUNT 3.76 X10'6 (4.20-5.60); WHITE BLOOD COUNT 13.3 X10'3 (4.5-11.0)
[2023-01-06 18:12] LABS: ALANINE AMINOTRANSFERASE 32 U/L (12-78); ALBUMIN 3.3 G/DL (3.4-5.0); ALBUMIN/GLOBULIN RATIO 0.7 (1.1-1.5); ALKALINE PHOSPHATASE 115 IU/L (46-116); ANION GAP 13 (8-16); ASPARTATE AMINO TRANSFERASE 36 U/L (10-37); BILIRUBIN,TOTAL 0.7 MG/DL (0.1-1.0); BLOOD UREA NITROGEN 52 MG/DL (7-18); BUN/CREATININE RATIO 34.9 (10.0-20.0); CALCIUM 9.7 MG/DL (8.5-10.1); CHLORIDE 97 MMOL/L (99-107); CREATININE 1.49 MG/DL (0.40-0.90); GLUCOSE 160 MG/DL (70-104); POTASSIUM 3.5 MMOL/L (3.5-5.1); SODIUM 132 MMOL/L (135-145); TOTAL CARBON DIOXIDE 22.2 MMOL/L (24-32); TOTAL PROTEIN 8.2 G/DL (6.4-8.2); eCRCL 27 ML/MIN; eGFR 33 ML/MIN
[2023-01-06] MEDS ORDERED: ringers solution, lactated 500ml IV solution IV ONE (18:35)
[2023-01-06 19:05] LABS: CREATINE KINASE 240 U/L (26-192); ETHANOL < 10 MG/DL (<10); PRO BRAIN NATRIURETIC PEPTIDE 10302 PG/ML (0-450)
[2023-01-06] MEDS ORDERED: clopidogrel 300mg tablet PO ONE (19:15)
[2023-01-06 19:26] LABS: BURR CELLS FEW; LARGE PLATELETS FEW; PLATELET ESTIMATE NORMAL
[2023-01-06] MEDS ORDERED: iohexol 350MG/ML 100ml bottle IV ONE (19:26)
[2023-01-06 19:54] LABS: BILIRUBIN,URINE NEGATIVE (Neg); CLARITY,URINE CLOUDY (Clear); GLUCOSE, URINE NEGATIVE (Neg); KETONES,URINE 15 mg/dl (Neg); LEUKOCYTE ESTERASE ,URINE MODERATE (Neg); NITRITES, URINE POSITIVE (Neg); OCCULT BLOOD,URINE MODERATE (Neg); PROTEIN,URINE 30 mg/dl (Neg)
--- NOTE | 2023-01-06 19:55 | NUR ---
1939 PLACED SHELLY ATTACHED TO MED SUCTION
[2023-01-06 19:56] LABS: COLOR,URINE DARK YELLOW (Yellow); UA COLLECTION TYPE VOIDED
[2023-01-06 20:03] LABS: BACTERIA,URINE 4+ /HPF (Neg)
[2023-01-06 20:09] LABS: HYALINE CASTS 0-3 /LPF (NEGATIVE); MUCUS STRANDS NONE SEEN /LPF (Neg); RENAL CELLS, URINE FEW /HPF; SQUAMOUS EPITHELIAL CELL,UR MODERATE /LPF (FEW); TRANSITIONAL EPI CELLS,URINE FEW /HPF; WBC,URINE 50-100 /HPF (0-4)
[2023-01-06] MEDS ORDERED: CefTRIAXone/D5W-Rocephin 1gm 50 ML IV ONE (20:15)
[2023-01-06] MEDS ORDERED: aspirin 81mg tab.chew PO ONE (21:30)
[2023-01-06] MEDS ORDERED: ondansetron/PF 4mg/2ml inj IV PRN (21:50)
[2023-01-06] MEDS ORDERED: HYDROcodone/acetaminophen 5mg/325mg tablet PO PRN (21:50)
[2023-01-06] MEDS ORDERED: magnesium hydroxide 30ml (MOM) UD suspension PO PRN (21:50)
[2023-01-06] MEDS ORDERED: mag hydrox/Alum hydrox/simeth 30ml oral suspension PO PRN (21:50)
[2023-01-06] MEDS ORDERED: magnesium 4gm in 100ml NS 100 ML IV PRN (21:50)
[2023-01-06] MEDS ORDERED: potassium Cl 40MEQ/1/2NS 520ml 520 ML IV PRN (21:50)
[2023-01-06] MEDS ORDERED: magnesium 2GM in 50ml NS 50 ML IV PRN (21:50)
[2023-01-06] MEDS ORDERED: magnesium Cl slow-release 64mg tablet PO PRN (21:50)
[2023-01-06] MEDS ORDERED: acetaminophen 325mg tablet PO PRN (21:50)
[2023-01-06] MEDS ORDERED: potassium Cl 20 mEq SR tablet PO PRN (21:50)
[2023-01-06 22:15] LABS: HEMOGLOBIN A1C 6.6 % (4.5-6.2)
--- NOTE | 2023-01-06 23:58 | NUR ---
pt displaced purwick and soiled all bedding and gown. replaced linen, gowned, warm blankets, and replaced purwick, repositioned for comfort
[2023-01-07 01:43] VITALS: BP 94/52; PULSE 90; RESP 25; TEMP 99; O2SAT 98
[2023-01-07 02:06] VITALS: RESP 25
--- NOTE | 2023-01-07 02:34 | NUR ---
Pt was admitted into the unit at about 1040, awake and alert ,able to answer questions correctly. at about 0230, pt became confused ,trying to get out of bed and having incoherent speech. Vitals are wnl. will continue to monitor.
--- NOTE | 2023-01-07 06:48 | NUR ---
Problems reprioritized. Patient report given, questions answered & plan of care reviewed with Rose
[2023-01-07 06:56] LABS: BASOPHILS % (AUTO) 0.3 % (0-1); EOSINOPHILS % (AUTO) 0 % (0-6); HEMATOCRIT 29.9 % (35.0-45.0); HEMOGLOBIN 10.1 g/dl (12.0-16.0); LYMPHOCYTES # (AUTO) 0.7 X10'3 (1.1-4.8); LYMPHOCYTES % (AUTO) 5.4 % (21-51); MEAN CORPUSCULAR HEMOGLOBIN 31.1 PG (27.0-31.0); MEAN CORPUSCULAR HGB CONC 33.7 g/dL (33.0-36.5); MEAN CORPUSCULAR VOLUME 92.4 FL (78-98); MONOCYTES # (AUTO) 1.1 X10'3 (0-0.9); MONOCYTES % (AUTO) 8.7 % (2-12); NEUTROPHILS # (AUTO) 11.2 X10'3 (1.8-7.7); NEUTROPHILS % (AUTO) 85.6 % (42-75); PLATELET COUNT 181 X10'3 (140-440); RED BLOOD COUNT 3.23 X10'6 (4.20-5.60); RED CELL DISTRIBUTION WIDTH 12.6 % (11.5-14.5); WHITE BLOOD COUNT 13.1 X10'3 (4.5-11.0)
[2023-01-07 07:30] LABS: % IRON SATURATION 16 % (11-46); IRON 30 UG/DL (49-151); TOTAL IRON BINDING CAPACITY 188 UG/DL (259-388)
[2023-01-07 07:45] LABS: ALANINE AMINOTRANSFERASE 24 U/L (12-78); ALBUMIN 2.9 G/DL (3.4-5.0); ALBUMIN/GLOBULIN RATIO 0.7 (1.1-1.5); ALKALINE PHOSPHATASE 99 IU/L (46-116); ANION GAP 11 (8-16); ASPARTATE AMINO TRANSFERASE 34 U/L (10-37); BILIRUBIN,TOTAL 0.7 MG/DL (0.1-1.0); BLOOD UREA NITROGEN 38 MG/DL (7-18); BUN/CREATININE RATIO 29.9 (10.0-20.0); CALCIUM 8.9 MG/DL (8.5-10.1); CHLORIDE 99 MMOL/L (99-107); CHOL/HDL RATIO 6.5 (0.00-4.99); CHOLESTEROL 149 MG/DL (0-200); CREATININE 1.27 MG/DL (0.40-0.90); FERRITIN 476 NG/ML (8-252); GLUCOSE 145 MG/DL (70-104); HDL CHOLESTEROL 23 MG/DL (35-60); LDL CHOLESTEROL 86 MG/DL (50-100); MAGNESIUM 2.1 MG/DL (1.5-2.4); POTASSIUM 3.6 MMOL/L (3.5-5.1); PRO BRAIN NATRIURETIC PEPTIDE 18880 PG/ML (0-450); SODIUM 131 MMOL/L (135-145); TOTAL PROTEIN 7.1 G/DL (6.4-8.2); TRIGLYCERIDES 163 MG/DL (20-135); eCRCL 32 ML/MIN; eGFR 40 ML/MIN
[2023-01-07 07:47] LABS: PLATELET ESTIMATE NORMAL; SMUDGE CELLS FEW; TOTAL CELLS COUNTED 100; TOXIC GRANULATION 1+
[2023-01-07 08:00] VITALS: RESP 20; O2SAT 96
[2023-01-07] MEDS ORDERED: enoxaparin 40mg/0.4ml syringe SUBCUT SCH ×2 (08:00→08:45)
[2023-01-07] MEDS ORDERED: furosemide 10 MG/1 ML 10ml inj IV SCH (08:00)
[2023-01-07] MEDS: K and/or MAG REPLACEMENT MC SCH ×2 (08:00→19:20)
[2023-01-07] MEDS: atorvastatin 20mg tablet PO SCH (08:26)
[2023-01-07] MEDS: docusate sod 100mg capsule PO SCH ×2 (08:27→19:20)
[2023-01-07] MEDS: CefTRIAXone/D5W-Rocephin 1gm 50 ML IV SCH (08:30)
[2023-01-07] MEDS ORDERED: aspirin 325mg tablet PO SCH (08:30)
[2023-01-07] MEDS: furosemide 10 MG/1 ML 10ml inj IV SCH ×2 (08:45→20:06)
[2023-01-07] MEDS: aspirin 81mg, enteric-coated 1 TAB TABLET.DR PO SCH (08:50)
[2023-01-07] MEDS ORDERED: AMIT25TA9 PO (11:03)
[2023-01-07] MEDS ORDERED: CARB200T40 PO (11:03)
[2023-01-07] MEDS ORDERED: enoxaparin 30mg/0.3ml syringe SUBCUT ONE (12:15)
[2023-01-07 18:00] VITALS: BP 102/51; PULSE 78; RESP 21; TEMP 98.4; O2SAT 98
[2023-01-07] MEDS ORDERED: MESSAGE TO PHARMACY PO ONE (20:00)
[2023-01-07] MEDS ORDERED: dextrose 50%-water 50ml dispensing syringe IV PRN ×2 (20:00)
[2023-01-07] MEDS ORDERED: glucagon, human recombinant 1mg kit SUBCUT PRN (20:00)
[2023-01-07] MEDS ORDERED: DEXTROSE 15 GM of carb/4 tabs (each vial/BOTTLE has 4 tablets) PO PRN ×2 (20:00)
[2023-01-07] MEDS: amitriptyline 25mg tablet PO SCH (20:04)
[2023-01-07] MEDS: carBAMazepine Ext. Release 200 MG TAB.ER.12H PO SCH (20:04)
[2023-01-07] MEDS: enoxaparin 40mg/0.4ml syringe SUBCUT SCH (20:05)
[2023-01-07] MEDS: enoxaparin 30mg/0.3ml syringe SUBCUT SCH (20:33)
[2023-01-07] MEDS: insulin glargine (Lantus) pen - multi-dose SQ SCH (21:00)
[2023-01-07 22:00] VITALS: BP 96/42; PULSE 83; RESP 20; TEMP 97.2; O2SAT 97
[2023-01-08] VITALS (7 sets, daily range): BP systolic 95–137; BP diastolic 52–68; PULSE 79–89; RESP 12–24; TEMP 97.6–97.9; O2SAT 92–98
--- NOTE | 2023-01-08 06:48 | NUR ---
Patient report given, questions answered & plan of care reviewed with SHLOMO Wilson
[2023-01-08 07:22] LABS: BASOPHILS % (AUTO) 0.3 % (0-1); EOSINOPHILS % (AUTO) 0.3 % (0-6); HEMATOCRIT 32.9 % (35.0-45.0); HEMOGLOBIN 11.4 g/dl (12.0-16.0); LYMPHOCYTES # (AUTO) 1.3 X10'3 (1.1-4.8); LYMPHOCYTES % (AUTO) 12.4 % (21-51); MEAN CORPUSCULAR HEMOGLOBIN 31.4 PG (27.0-31.0); MEAN CORPUSCULAR HGB CONC 34.6 g/dL (33.0-36.5); MEAN CORPUSCULAR VOLUME 90.8 FL (78-98); MEAN PLATELET VOLUME 9.8 FL (7.4-10.4); MONOCYTES # (AUTO) 1.1 X10'3 (0-0.9); NEUTROPHILS # (AUTO) 7.7 X10'3 (1.8-7.7); PLATELET COUNT 192 X10'3 (140-440); RED BLOOD COUNT 3.62 X10'6 (4.20-5.60); RED CELL DISTRIBUTION WIDTH 12.8 % (11.5-14.5); WHITE BLOOD COUNT 10.2 X10'3 (4.5-11.0)
[2023-01-08 07:45] LABS: ALANINE AMINOTRANSFERASE 23 U/L (12-78); ALBUMIN 2.9 G/DL (3.4-5.0); ALBUMIN/GLOBULIN RATIO 0.6 (1.1-1.5); ALKALINE PHOSPHATASE 102 IU/L (46-116); ANION GAP 13 (8-16); ASPARTATE AMINO TRANSFERASE 32 U/L (10-37); BILIRUBIN,TOTAL 0.5 MG/DL (0.1-1.0); BLOOD UREA NITROGEN 37 MG/DL (7-18); CHLORIDE 96 MMOL/L (99-107); CREATININE 1.37 MG/DL (0.40-0.90); GLUCOSE 180 MG/DL (70-104); PRO BRAIN NATRIURETIC PEPTIDE 26263 PG/ML (0-450); SODIUM 132 MMOL/L (135-145); THYROID STIMULATING HORMONE 2.38 ulU/ml (0.34-4.50); TOTAL PROTEIN 7.5 G/DL (6.4-8.2); eCRCL 30 ML/MIN; eGFR 37 ML/MIN
--- NOTE | 2023-01-08 07:49 | NUR ---
reported critical k of 2.9 to primary duke WHEELER
[2023-01-08] MEDS ORDERED: aspirin 81mg tab.chew PO SCH (08:00)
[2023-01-08] MEDS: carBAMazepine Ext. Release 200 MG TAB.ER.12H PO SCH ×2 (08:00→19:13)
[2023-01-08] MEDS: lisinopril 10 MG tablet PO SCH (08:00)
[2023-01-08] MEDS: furosemide 10 MG/1 ML 10ml inj IV SCH ×2 (08:00→19:23)
[2023-01-08] MEDS: atenolol 50mg tablet PO SCH (08:00)
[2023-01-08] MEDS: docusate sod 100mg capsule PO SCH ×2 (08:00→19:10)
[2023-01-08] MEDS: K and/or MAG REPLACEMENT MC SCH ×2 (08:00→20:00)
[2023-01-08] MEDS: enoxaparin 30mg/0.3ml syringe SUBCUT SCH (08:36)
[2023-01-08] MEDS: enoxaparin 40mg/0.4ml syringe SUBCUT SCH ×2 (08:37→19:12)
[2023-01-08] MEDS: atorvastatin 20mg tablet PO SCH (08:37)
[2023-01-08] MEDS: aspirin 81mg, enteric-coated 1 TAB TABLET.DR PO SCH (08:37)
[2023-01-08] MEDS: CefTRIAXone/D5W-Rocephin 1gm 50 ML IV SCH (08:37)
[2023-01-08] MEDS: clopidogrel 75mg tablet PO SCH (08:38)
[2023-01-08] MEDS: potassium Cl 20 mEq SR tablet PO PRN ×3 (08:38→19:15)
--- NOTE | 2023-01-08 16:57 | NUR ---
notified Dr. Hook of pt's cramping and restless legs. Discussed pt's low potassium. Confirmed that after potassium is replaced, pt should feel better tomorrow. No new orders at this time.
[2023-01-08] MEDS: insulin Lispro (HumaLOG) vial - multi-dose SQ SCH (18:57)
[2023-01-08] MEDS: morphine 2 MG/ML inj. syringe IV PRN ×2 (19:19→21:01)
[2023-01-08] MEDS: amitriptyline 25mg tablet PO SCH (20:44)
[2023-01-08] MEDS: insulin glargine (Lantus) pen - multi-dose SQ SCH (20:59)
[2023-01-09] VITALS (7 sets, daily range): BP systolic 98–152; BP diastolic 50–96; PULSE 83–95; RESP 13–20; TEMP 97.3–98.3; O2SAT 91–99
--- NOTE | 2023-01-09 06:15 | NUR ---
Problems reprioritized. Patient report given Jazmine KEENAN questions answered & plan of care reviewed with .
--- NOTE | 2023-01-09 06:34 | NUR ---
Patient report given to Emerald KEENAN questions answered & plan of care reviewed with .
[2023-01-09 07:52] LABS: BASOPHILS % (AUTO) 0.2 % (0-1); EOSINOPHILS % (AUTO) 0 % (0-6); HEMATOCRIT 35.5 % (35.0-45.0); LYMPHOCYTES # (AUTO) 0.9 X10'3 (1.1-4.8); LYMPHOCYTES % (AUTO) 7.9 % (21-51); MEAN CORPUSCULAR HEMOGLOBIN 31.1 PG (27.0-31.0); MEAN CORPUSCULAR HGB CONC 33.7 g/dL (33.0-36.5); MEAN CORPUSCULAR VOLUME 92.2 FL (78-98); MEAN PLATELET VOLUME 9.8 FL (7.4-10.4); MONOCYTES # (AUTO) 0.9 X10'3 (0-0.9); MONOCYTES % (AUTO) 8.3 % (2-12); NEUTROPHILS % (AUTO) 83.6 % (42-75); PLATELET COUNT 227 X10'3 (140-440); RED BLOOD COUNT 3.85 X10'6 (4.20-5.60); RED CELL DISTRIBUTION WIDTH 12.9 % (11.5-14.5); WHITE BLOOD COUNT 10.8 X10'3 (4.5-11.0)
[2023-01-09] MEDS: atenolol 50mg tablet PO SCH (08:00)
[2023-01-09] MEDS: lisinopril 10 MG tablet PO SCH (08:00)
[2023-01-09] MEDS: K and/or MAG REPLACEMENT MC SCH ×2 (08:00→20:00)
[2023-01-09 08:24] LABS: ALANINE AMINOTRANSFERASE 27 U/L (12-78); ALBUMIN/GLOBULIN RATIO 0.6 (1.1-1.5); ALKALINE PHOSPHATASE 105 IU/L (46-116); ANION GAP 8 (8-16); ASPARTATE AMINO TRANSFERASE 27 U/L (10-37); BILIRUBIN,TOTAL 0.5 MG/DL (0.1-1.0); BLOOD UREA NITROGEN 35 MG/DL (7-18); BUN/CREATININE RATIO 27.1 (10.0-20.0); CALCIUM 9.6 MG/DL (8.5-10.1); CHLORIDE 98 MMOL/L (99-107); CREATININE 1.29 MG/DL (0.40-0.90); GLUCOSE 168 MG/DL (70-104); MAGNESIUM 2.1 MG/DL (1.5-2.4); POTASSIUM 5.1 MMOL/L (3.5-5.1); PRO BRAIN NATRIURETIC PEPTIDE 11609 PG/ML (0-450); SODIUM 133 MMOL/L (135-145); TOTAL CARBON DIOXIDE 26.7 MMOL/L (24-32); TOTAL PROTEIN 8.2 G/DL (6.4-8.2); eCRCL 32 ML/MIN; eGFR 39 ML/MIN
[2023-01-09] MEDS: carBAMazepine Ext. Release 200 MG TAB.ER.12H PO SCH ×2 (08:29→20:34)
[2023-01-09] MEDS: docusate sod 100mg capsule PO SCH ×2 (08:29→20:00)
[2023-01-09] MEDS: CefTRIAXone/D5W-Rocephin 1gm 50 ML IV SCH (08:29)
[2023-01-09] MEDS: furosemide 10 MG/1 ML 10ml inj IV SCH ×2 (08:29→20:34)
[2023-01-09] MEDS: clopidogrel 75mg tablet PO SCH (08:29)
[2023-01-09] MEDS: atorvastatin 20mg tablet PO SCH (08:29)
[2023-01-09] MEDS: aspirin 81mg, enteric-coated 1 TAB TABLET.DR PO SCH (08:29)
[2023-01-09] MEDS: enoxaparin 40mg/0.4ml syringe SUBCUT SCH (08:30)
[2023-01-09] MEDS: insulin Lispro (HumaLOG) vial - multi-dose SQ SCH (08:32)
--- NOTE | 2023-01-09 10:58 | NUR ---
Dr Champagne gave me an order for teleneuro consult per Stroke RN Claudette recommendations since one has not been done after MRI/MRA
--- NOTE | 2023-01-09 13:38 | NUR ---
PRESSURE ULCER EDUCATION: DEFINITION: A pressure ulcer is an area of skin that breaks down when you stay in one position too long. The constant pressure against the skin reduces the blood flow to that area and the affected tissue dies. CAUSES: "Being bedridden or in a wheelchair "Fragile skin "Having a chronic condition, such as diabetes or vascular disease "Inability to move certain parts of your body without assistance "Older age "Incontinence of urine or stool SYMPTOMS: "A reddened area that DOES NOT turn white when pressed on - this can be the beginning of a pressure ulcer "A blister, deep sore or a crater - these can be advanced pressure ulcers FIRST AID: "Relieve the pressure on this area "Keep the area clean and dry "Call your primary doctor if you see any of the above symptoms "DO NOT massage the area "DO NOT use a donut shaped or ring shaped pillow- these actually interfere with the blood flow and cause complications PREVENTION: "Check for pressure ulcers everyday "Change position at least every two hours to relieve pressure "Use items that help relieve pressure- pillows, sheepskin, foam padding, and powders. "Keep skin clean and dry "Eat healthy well balanced meals "Exercise daily IF YOU SEE ANY OF THESE SYMPTOMS WHILE IN THE HOSPITAL - TELL YOUR NURSE IMMEDIATELY. IF YOU SEE ANY OF THESE SYMPTOMS WHILE AT HOME OR HAVE ANY QUESTIONS OR CONCERNS ABOUT PRESSURE ULCERS - CALL YOUR PRIMARY DOCTOR IMMEDIATELY. Addendum: 01/09/23 at 1338 by Vincent Merino RN Amended: Links added.
--- NOTE | 2023-01-09 13:40 | NUR ---
offered patient food and drink and to help her eat she refused both at this time.
--- NOTE | 2023-01-09 16:34 | NUR ---
Page Accepted promotional table spacer Message: [phone]. Blue shalom note in [employer]. Did you want to start fluids on this patient? [email or web address] Custom Responses: promotional table spacer Transaction number: [id number]
--- NOTE | 2023-01-09 16:51 | NUR ---
per telephone conversation with Dr Champagne I received orders for strict I&O , place protocol isauro for monitoring , start NS @75
[2023-01-09] MEDS ORDERED: LidoCAINE 2% Topical Jelly 11mL syringe TOP ONE (17:15)
[2023-01-09] MEDS: normal saline 1000ml 1,000 ML IV SCH ×2 (17:40→23:23)
--- NOTE | 2023-01-09 17:41 | NUR ---
fluids started @75. box placed no complications
--- NOTE | 2023-01-09 18:19 | NUR ---
Problems reprioritized. Patient report given, questions answered & plan of care reviewed with Emerald KEENAN.
[2023-01-09] MEDS: amitriptyline 25mg tablet PO SCH (20:35)
[2023-01-09] MEDS: insulin glargine (Lantus) pen - multi-dose SQ SCH (21:09)
[2023-01-10 02:00] VITALS: BP 121/72; PULSE 95; RESP 15; TEMP 97.6; O2SAT 96
--- NOTE | 2023-01-10 06:47 | NUR ---
Patient report given, questions answered & plan of care reviewed with SHLOMO Corbin
[2023-01-10 07:39] LABS: BASOPHILS % (AUTO) 0.2 % (0-1); EOSINOPHILS % (AUTO) 0.1 % (0-6); HEMATOCRIT 33.3 % (35.0-45.0); HEMOGLOBIN 11.2 g/dl (12.0-16.0); LYMPHOCYTES # (AUTO) 1.3 X10'3 (1.1-4.8); LYMPHOCYTES % (AUTO) 11.5 % (21-51); MEAN CORPUSCULAR HGB CONC 33.5 g/dL (33.0-36.5); MEAN CORPUSCULAR VOLUME 92.7 FL (78-98); MEAN PLATELET VOLUME 9.7 FL (7.4-10.4); MONOCYTES # (AUTO) 1.4 X10'3 (0-0.9); MONOCYTES % (AUTO) 12.1 % (2-12); NEUTROPHILS # (AUTO) 8.8 X10'3 (1.8-7.7); NEUTROPHILS % (AUTO) 76.1 % (42-75); PLATELET COUNT 235 X10'3 (140-440); RED BLOOD COUNT 3.59 X10'6 (4.20-5.60); RED CELL DISTRIBUTION WIDTH 12.9 % (11.5-14.5); WHITE BLOOD COUNT 11.6 X10'3 (4.5-11.0)
[2023-01-10 07:58] LABS: ALANINE AMINOTRANSFERASE 21 U/L (12-78); ALBUMIN 2.8 G/DL (3.4-5.0); ALBUMIN/GLOBULIN RATIO 0.6 (1.1-1.5); ALKALINE PHOSPHATASE 97 IU/L (46-116); ANION GAP 12 (8-16); ASPARTATE AMINO TRANSFERASE 34 U/L (10-37); BILIRUBIN,TOTAL 0.5 MG/DL (0.1-1.0); BLOOD UREA NITROGEN 35 MG/DL (7-18); BUN/CREATININE RATIO 27.6 (10.0-20.0); CHLORIDE 96 MMOL/L (99-107); CREATININE 1.27 MG/DL (0.40-0.90); GLUCOSE 144 MG/DL (70-104); MAGNESIUM 1.8 MG/DL (1.5-2.4); POTASSIUM 3.9 MMOL/L (3.5-5.1); PRO BRAIN NATRIURETIC PEPTIDE 7522 PG/ML (0-450); SODIUM 130 MMOL/L (135-145); TOTAL CARBON DIOXIDE 21.7 MMOL/L (24-32); TOTAL PROTEIN 7.7 G/DL (6.4-8.2); eCRCL 32 ML/MIN; eGFR 40 ML/MIN
[2023-01-10 08:00] VITALS: RESP 16; O2SAT 98
[2023-01-10] MEDS ORDERED: apixaban 5mg tablet PO SCH (08:00)
[2023-01-10] MEDS ORDERED: apixaban 2.5mg tablet PO SCH (08:00)
[2023-01-10] MEDS: K and/or MAG REPLACEMENT MC SCH (08:00)
[2023-01-10] MEDS ORDERED: enoxaparin 40mg/0.4ml syringe SUBCUT SCH (08:30)
[2023-01-10] MEDS: CefTRIAXone/D5W-Rocephin 1gm 50 ML IV SCH (08:35)
[2023-01-10] MEDS: lisinopril 10 MG tablet PO SCH (08:41)
[2023-01-10] MEDS: docusate sod 100mg capsule PO SCH (08:41)
[2023-01-10] MEDS: atorvastatin 20mg tablet PO SCH (08:41)
[2023-01-10] MEDS: furosemide 10 MG/1 ML 10ml inj IV SCH (08:42)
[2023-01-10] MEDS: atenolol 50mg tablet PO SCH (08:42)
[2023-01-10 11:00] VITALS: BP 127/78; PULSE 94; RESP 14; TEMP 97.9; O2SAT 99
[2023-01-10] MEDS: carBAMazepine Ext. Release 200 MG TAB.ER.12H PO SCH (12:23)
[2023-01-10 15:00] VITALS: BP 111/48; PULSE 76; RESP 12; TEMP 97; O2SAT 100
== END 2023-01-10 18:59 | DRG 64 ==
LOC: ER 16:15 → ED HOLD 21:53 → PCU 3S 01-07 01:30
PROVIDERS: ADMIT Internal Medicine; ATTEND Family Medicine
PROC: B3251ZZ Computerized Tomography (CT Scan) of Bilateral Common Carotid Arteries using Low Osmolar Contrast (ICD-10-PCS; principal; 2023-01-06)
PROC: B32G1ZZ Computerized Tomography (CT Scan) of Bilateral Vertebral Arteries using Low Osmolar Contrast (ICD-10-PCS; 2023-01-06)
PROC: B32R1ZZ Computerized Tomography (CT Scan) of Intracranial Arteries using Low Osmolar Contrast (ICD-10-PCS; 2023-01-06)
PROC: B3281ZZ Computerized Tomography (CT Scan) of Bilateral Internal Carotid Arteries using Low Osmolar Contrast (ICD-10-PCS; 2023-01-06)
DX: I63.89 Other cerebral infarction (principal); I50.33 Acute on chronic diastolic (congestive) heart failure; N17.9 Acute kidney failure, unspecified; E87.1 Hypo-osmolality and hyponatremia; N39.0 Urinary tract infection, site not specified; G93.40 Encephalopathy, unspecified; I11.0 Hypertensive heart disease with heart failure; F10.90 Alcohol use, unspecified, uncomplicated; R79.89 Other specified abnormal findings of blood chemistry; D72.829 Elevated white blood cell count, unspecified; E78.5 Hyperlipidemia, unspecified; E87.6 Hypokalemia; E11.9 Type 2 diabetes mellitus without complications; R29.710 NIHSS score 10; I25.10 Atherosclerotic heart disease of native coronary artery without angina pectoris; Z88.5 Allergy status to narcotic agent; Z88.6 Allergy status to analgesic agent
CPT/HCPCS: 36415; 70450; 70496; 70498; 70544; 70547; 70551; 71045; 72125; 73090; 80053; 80061; 80320; 81001; 82550; 82607; 82728; 82948; 83036; 83540; 83550; 83735; 83880; 84443; 84484; 85007; 85008; 85025; 86592; 87077; 87081; 87088; 87186; 92508; 92616; 93005; 93306; 93880; 97116; 97161; 97530; 99285; A4314; A4615; A6213; A6250; A6258; A6449; G0378; J0696; J1650; J1815; J1940; J2270; J3490; J7030; J7040; J7120; Q9967

== ENCOUNTER 2023-01-14 07:16 | Emergency (ER) | payer BC, MEDICAID ==
[~2023-01-14] VITALS: Ht 162.6 cm; Wt 73.2 kg
[~2023-01-14 07:16] MED LIST changes: +AMIT25TA9 PO; +CARB200T40 PO
[2023-01-14 08:03] LABS: BILIRUBIN,URINE NEGATIVE (Neg); CLARITY,URINE CLEAR (Clear); COLOR,URINE YELLOW (Yellow); GLUCOSE, URINE NEGATIVE (Neg); KETONES,URINE NEGATIVE (Neg); LEUKOCYTE ESTERASE ,URINE NEGATIVE (Neg); NITRITES, URINE NEGATIVE (Neg); OCCULT BLOOD,URINE SMALL (Neg); PH,URINE 5.5 (4.8-8.0); PROTEIN,URINE TRACE mg/dl (Neg); UROBILINOGEN,URINE 0.2 E.U/dL (0.2-1.0)
[2023-01-14] MEDS ORDERED: normal saline 1000ML IV soln IV ONE (08:10)
[2023-01-14 08:15] LABS: UA COLLECTION TYPE STRAIGHT CATH
[2023-01-14 08:18] LABS: BACTERIA,URINE NONE SEEN /HPF (Neg); RBC,URINE 0-2 /HPF (0-2); SQUAMOUS EPITHELIAL CELL,UR FEW /LPF (FEW); WBC,URINE 0-4 /HPF (0-4)
[2023-01-14 08:55] LABS: BASOPHILS % (AUTO) 0.4 % (0-1); EOSINOPHILS # (AUTO) 0.1 X10'3 (0-0.9); EOSINOPHILS % (AUTO) 0.7 % (0-6); HEMATOCRIT 35.3 % (35.0-45.0); HEMOGLOBIN 11.9 g/dl (12.0-16.0); LYMPHOCYTES % (AUTO) 10.2 % (21-51); MEAN CORPUSCULAR HEMOGLOBIN 31.2 PG (27.0-31.0); MEAN CORPUSCULAR HGB CONC 33.7 g/dL (33.0-36.5); MEAN CORPUSCULAR VOLUME 92.6 FL (78-98); MEAN PLATELET VOLUME 9.9 FL (7.4-10.4); MONOCYTES # (AUTO) 1.2 X10'3 (0-0.9); NEUTROPHILS # (AUTO) 7.7 X10'3 (1.8-7.7); NEUTROPHILS % (AUTO) 76.7 % (42-75); PLATELET COUNT 275 X10'3 (140-440); RED BLOOD COUNT 3.81 X10'6 (4.20-5.60); RED CELL DISTRIBUTION WIDTH 12.5 % (11.5-14.5); WHITE BLOOD COUNT 10.1 X10'3 (4.5-11.0)
[2023-01-14 09:28] LABS: ALKALINE PHOSPHATASE 106 IU/L (46-116); ANION GAP 11 (8-16); BILIRUBIN,TOTAL 0.6 MG/DL (0.1-1.0); CHLORIDE 96 MMOL/L (99-107); MAGNESIUM 2.2 MG/DL (1.5-2.4); POTASSIUM 4.1 MMOL/L (3.5-5.1); SODIUM 131 MMOL/L (135-145); TOTAL CARBON DIOXIDE 24.2 MMOL/L (24-32); TOTAL PROTEIN 8.4 G/DL (6.4-8.2)
[2023-01-14 09:36] LABS: ALANINE AMINOTRANSFERASE 28 U/L (12-78); ALBUMIN 3.1 G/DL (3.4-5.0); ALBUMIN/GLOBULIN RATIO 0.6 (1.1-1.5); ASPARTATE AMINO TRANSFERASE 30 U/L (10-37); BLOOD UREA NITROGEN 49 MG/DL (7-18); BUN/CREATININE RATIO 28.8 (10.0-20.0); CALCIUM 9.4 MG/DL (8.5-10.1); GLUCOSE 144 MG/DL (70-104); eCRCL 21 ML/MIN; eGFR 28 ML/MIN
--- NOTE | 2023-01-14 10:40 | NUR ---
REPORT CALLED TO RN AT [facility], JAVIER CARGO TO PAINTING DEPARTMENT SUPERVISOR PT
[2023-01-14] MEDS ORDERED: CHLO25CA10 PO ×2 (10:55)
[2023-01-14 10:59] VITALS: BP 112/61; PULSE 70; RESP 16; TEMP 97.8; O2SAT 100
== END 2023-01-14 11:00 | disposition home or self-care (01) ==
LOC: ER 07:17
DX: S00.81XA Abrasion of other part of head, initial encounter (principal); N39.0 Urinary tract infection, site not specified; Z88.5 Allergy status to narcotic agent; Z88.6 Allergy status to analgesic agent; Z79.82 Long term (current) use of aspirin; Z79.899 Other long term (current) drug therapy; X58.XXXA Exposure to other specified factors, initial encounter; Y93.89 Activity, other specified; Y92.89 Other specified places as the place of occurrence of the external cause; Y99.8 Other external cause status
CPT/HCPCS: 36415; 71045; 80053; 81001; 82948; 83605; 83735; 84145; 85025; 87040; 93005; 96360; 99285; J7030